=== PATIENT | male | born 1960 | race Asian ===

== ENCOUNTER 2016-09-18 15:11 | Emergency (ER) | payer OTHER, BC ==
[~2016-09-18] VITALS: Ht 180.3 cm; Wt 113.4 kg
[2016-09-18 15:05] VITALS: TEMP 98.3
[2016-09-18 15:31] LABS: PLATELET COUNT 215 K/uL (142-355)
[2016-09-18 15:34] LABS: POTASSIUM 3.3 mmol/L (3.6-5.2); SODIUM 138 mmol/L (136-145)
[2016-09-18 17:08] VITALS: BP 188/88
== END 2016-09-18 17:20 ==
LOC: ED 15:11
PROVIDERS: Internal Medicine Gastroenterology
DX: S00.01XA Abrasion of scalp, initial encounter (principal); S39.012A Strain of muscle, fascia and tendon of lower back, initial encounter; V48.0XXA Car driver injured in noncollision transport accident in nontraffic accident, initial encounter
CPT/HCPCS: 80053; 80307; 80320; 85027; 99283; G0479

== ENCOUNTER 2016-09-22 16:44 | Emergency (ER) | payer OTHER, BC ==
[~2016-09-22] VITALS: Ht 180.3 cm; Wt 95.3 kg
[2016-09-22 17:50] VITALS: BP 168/98; TEMP 99.1
== END 2016-09-22 17:50 | disposition home or self-care (01) ==
LOC: ED 16:44
DX: M79.1 Myalgia (principal)
CPT/HCPCS: 99282

== ENCOUNTER 2021-07-07 09:47 | Outpatient (CLI) | payer OTHER | END 2021-07-07 18:51 | disposition home or self-care (01) | LOC: RAD 09:47 | PROVIDERS: ATTEND Family Medicine | DX: M54.2 Cervicalgia (principal); M54.89 Other dorsalgia ==